=== PATIENT | male | born 1955 | race Caucasian/White ===

== ENCOUNTER 2023-08-18 13:31 | Outpatient (CLI) | payer MEDICARE ==
--- NOTE | 2023-08-18 15:31 | Ultrasound Report ---
PROCEDURE: Pelvic Limited or F/U INDICATIONS: RIGHT GROIN PAIN TECHNIQUE: Real-time transabdominal scanning was performed of the pelvic organs, with image documentation. COMPARISON: None. FINDINGS: There is a reducible, fat-containing right inguinal hernia in the area of pain. The neck measures 3.2 cm in diameter. IMPRESSION: Reducible, fat-containing right inguinal hernia as palpated. Reviewed by: Bettina Torres MD on 08/18/2023 3:30 PM PST Approved by: Bettina Torres MD on 08/18/2023 3:30 PM PST Station ID: [id number]
== END 2023-08-18 13:32 | disposition home or self-care (01) ==
LOC: DI 13:31
PROVIDERS: ATTEND Registered Nurse
DX: K40.90 Unilateral inguinal hernia, without obstruction or gangrene, not specified as recurrent (principal)